=== PATIENT | female | born 1985 | race Caucasian/White ===

== ENCOUNTER → 2016-07-23 | Outpatient (CLI) | payer OTHER ==
[2014-11-14 14:29] VITALS: BP 105/58
--- NOTE | 2016-07-23 09:13 | KCIC ---
Ultrasound abdomen limited Indication: Severe right upper quadrant pain. The liver is normal in size. No discrete liver mass is detected. The gallbladder does contain several small stones. In addition, gallbladder wall is thickened up to 5-6 millimeters. No biliary ductal dilatation is seen. The pancreas and right kidney are unremarkable. There is no ascites. The IVC is unremarkable. Impression: Cholelithiasis with findings suspicious for acute cholecystitis. Electronically signed by: Bayron Connolly MD (Jul 23, 2016 09:11:55)
== END | disposition home or self-care (01) ==
LOC: KCIC US 08:24
PROVIDERS: ATTEND Obstetrics & Gynecology
DX: K80.20 Calculus of gallbladder without cholecystitis without obstruction (principal)
CPT/HCPCS: 76705